=== PATIENT | female | born 1995 | race Caucasian/White ===

== ENCOUNTER 2018-08-26 07:39 | Emergency (ER) | payer BC ==
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
== END 2018-08-26 08:25 | disposition home or self-care (01) ==
LOC: MADERS 07:39
DX: S63.91XA Sprain of unspecified part of right wrist and hand, initial encounter (principal); Z79.899 Other long term (current) drug therapy; V99.XXXA Unspecified transport accident, initial encounter